=== PATIENT | female | born 1965 | race Caucasian/White ===

== ENCOUNTER 2024-08-13 06:40 | Emergency (ER) | payer SELFPAY ==
[~2024-08-13] VITALS: Ht 162.6 cm; Wt 60.0 kg
[~2024-08-13 06:40] MED LIST: METF-414
[2024-08-13 06:46] VITALS: O2SAT 100
[2024-08-13] MEDS: ONDANSETRON HCL 4MG/2ML INJ IV STA (07:16)
[2024-08-13] MEDS: SODIUM CHLORIDE 0.9% 1,000 ML IV ONE ×2 (07:16→10:09)
[2024-08-13 07:49] LABS: BASOPHILS % 0.8 % (0.0-2.0); EOSINOPHILS % 0.5 % (0.0-5.0); HEMATOCRIT. 32.7 % (36.0-48.0); HEMOGLOBIN. 10.8 g/dL (12.0-16.0); LYMPHOCYTES % 25.5 % (20.0-50.0); MEAN CORPUSCULAR HEMOGLOBIN 32.1 pg (28.0-32.0); MEAN CORPUSCULAR HGB CONC 32.9 g/dL (31.0-37.0); MEAN CORPUSCULAR VOLUME 97.6 fL (81.0-99.0); MONOCYTES % 6.4 % (2.0-8.0); NEUTROPHILS % 66.8 % (40.0-76.0); PLATELET 281 x1000/uL (130-400); RED BLOOD CELL COUNT 3.35 mill/uL (4.2-5.4); RED CELL DISTRIBUTION WIDTH 13.8 % (11.6-14.6); WHITE BLOOD COUNT 7.5 x1000/uL (4.5-11.0)
[2024-08-13 07:52] LABS: CHLORIDE 104 mEq/L (98-107); POTASSIUM 4.5 mEq/L (3.5-5.1); SODIUM 138 mEq/L (136-145)
[2024-08-13 07:54] LABS: CARBON DIOXIDE 21 mEq/L (21-32)
[2024-08-13 07:55] LABS: CALCIUM 10.1 mg/dL (8.7-10.4)
[2024-08-13 07:59] LABS: CREATININE 0.7 mg/dL (0.6-1.0); GLUCOSE 183 mg/dL (70-105)
[2024-08-13 08:00] LABS: UREA NITROGEN BLOOD 17 mg/dL (9-23)
[2024-08-13 08:01] LABS: ALANINE AMINOTRANSFERASE 15 IU/L (10-49); ALBUMIN 4.3 g/dL (3.2-4.8); ASPARTATE AMINOTRANSFERASE 24 IU/L (<34)
[2024-08-13 08:02] LABS: BILIRUBIN DIRECT 0.1 mg/dL (<=3.0); BILIRUBIN TOTAL 0.5 mg/dL (0.1-1.0); PROTEIN TOTAL 8.1 g/dL (6.0-8.3)
[2024-08-13 08:05] LABS: ETHANOL BLOOD < 10 mg/dL (<10)
[2024-08-13] MEDS: HALOPERIDOL LACTATE 5MG/ML VIAL IM NR (08:52)
[2024-08-13] MEDS ORDERED: DIPHENHYDRAMINE 50MG/ML VIAL IV ONE (10:15)
[2024-08-13] MEDS ORDERED: ONDA-239 PO (10:30)
[2024-08-13 10:57] VITALS: BP 115/58; PULSE 74; RESP 16; TEMP 36.7; O2SAT 100
== END 2024-08-13 11:01 | disposition home or self-care (01) ==
LOC: ER 06:40
DX: R11.2 Nausea with vomiting, unspecified (principal); E11.9 Type 2 diabetes mellitus without complications; I10 Essential (primary) hypertension; Z79.899 Other long term (current) drug therapy
CPT/HCPCS: 80076; 80048; 80320; 83690; 85025; 36415; 71045; 93005; 96361; 96372; 96374; 99285; J1630; J2405; J7030; Z7610; G0480